=== PATIENT | female | born 1945 | race Caucasian/White ===

== ENCOUNTER 2019-06-17 23:08 | Observation (INO) ==
[2019-06-18 00:37] LABS: Calcium 9.1 MG/DL (8.5-10.1)
[2019-06-18 00:54] LABS: Basophils # 0.1 10*3/uL (0.0-0.2); Basophils % 0.7 % (0.0-0.8); Eosinophils # 0.3 10*3/uL (0.0-0.87); Hematocrit 39.3 VOL% (35.7-47.0); Hemoglobin 12.9 GM/DL (12.0-16.0); Immature Granulocytes % 1.6 %; Immature Granulocytes Absolute 0.12 #; Lymphocytes # 1.6 10*3/uL (1.4-4.0); Lymphocytes % 21.7 % (21.3-54.2); Mean Corpuscular HGB Conc 32.8 GM/DL (32-36); Mean Corpuscular Volume 90.1 FL (87-102); Mean Platelet Volume 11.2 FL (9.6-12.0); Monocytes % 12.3 % (1.7-12.7); Neutrophils % 59.7 % (38.7-73.9); Platelet Count 223 T/CUMM (130-400); Red Blood Count 4.36 MC/CUMM (3.8-5.5); White Blood Count 7.5 T/CUMM (4-12)
[2019-06-18] MEDS ORDERED: NICOTINE 21 MG/24 HR PATCH TRANSDERM PRN (02:28)
[2019-06-18] MEDS ORDERED: GLUCAGON 1 MG VIAL IM PRN (02:28)
[2019-06-18] MEDS ORDERED: ONDANSETRON 4 MG/2 ML VIAL IV PRN (02:28)
[2019-06-18] MEDS ORDERED: ACETAMINOPHEN 325 MG TABLET PO PRN (02:28)
[2019-06-18] MEDS ORDERED: diphenhydrAMINE CAP 25 MG CAPSULE PO PRN (02:28)
[2019-06-18] MEDS ORDERED: guaiFENesin/DM ER 600-30 MG TABLET PO PRN (02:28)
[2019-06-18] MEDS ORDERED: DEXTROSE 10% 250 ML BAG IV PRN (02:49)
[2019-06-18] MEDS: hydrALAZINE 20 MG/1 ML VIAL IV PRN ×2 (03:12→13:57)
[2019-06-18 03:15] LABS: Apearance,Urine CLEAR (Clear); Bacteria,Urine Occasional /HPF (Few); Bilirubin,Urine Negative (Negative); Blood, Urine Negative (Negative); Glucose,Urine (UA) 50 mg/dL (Negative); Granular Casts,Urine 1 /LPF (0-1); Hyaline Casts,Urine 5 /LPF (0-3); Ketones,Urine Negative (Negative); Mucus,Urine Occasional /LPF (Occasional); Nitrite,Urine Negative (Negative); Protein,Urine Negative; RBC,Urine 1 /HPF (0-4); Renal Epithelial Cells,Urine Occasional /HPF (<1); Squamous Epithelial Cell,Urine Occasional /HPF (0-10); Urine Color Yellow (Yellow); Urine Specific Gravity 1.011 (1.001-1.035); Urine Urobilinogen < 2.0 EU/DL (0.2-1.0); WBC,Urine <1 /HPF (0-6)
[2019-06-18] MEDS: INSULIN REGULAR 100 UNIT/ML SUBCUT SCH ×3 (05:33→19:22)
[2019-06-18 08:56] LABS: Risk Ratio 4.82; Thyroid Stimulating Hormone 1.8 uIU/ml (0.358-3.74); VLDL CHOLESTEROL 31.2 MG/DL
[2019-06-18] MEDS ORDERED: FUROSEMIDE 40 MG/4 ML VIAL IV SCH (09:00)
[2019-06-18] MEDS: ENOXAPARIN 40 MG/0.4 ML SYRINGE SUBCUT SCH (10:39)
[2019-06-18] MEDS: FUROSEMIDE 40 MG/4 ML VIAL IV SCH (21:27)
[2019-06-19] MEDS: INSULIN REGULAR 100 UNIT/ML SUBCUT SCH ×3 (01:01→12:29)
[2019-06-19] MEDS: hydrALAZINE 20 MG/1 ML VIAL IV PRN (04:59)
[2019-06-19 06:34] LABS: Calcium 9.2 MG/DL (8.5-10.1)
[2019-06-19] MEDS ORDERED: POTASSIUM CHLORIDE 20 MEQ TABLET PO ONE (07:27)
[2019-06-19] MEDS: ENOXAPARIN 40 MG/0.4 ML SYRINGE SUBCUT SCH (09:45)
[2019-06-19] MEDS: FUROSEMIDE 40 MG/4 ML VIAL IV SCH (09:45)
[2019-06-19 12:36] VITALS: BP 176/83
== END 2019-06-19 16:07 ==
LOC: EDBD → EDUNIT# → N.EDINP 23:08 → N.ED 23:08 → N.TELES 06-18 04:03
PROVIDERS: ADMIT Internal Medicine Geriatric Medicine; ATTEND Internal Medicine Geriatric Medicine